=== PATIENT | male | born 2000 | race Caucasian/White ===

== ENCOUNTER 2022-08-16 23:59 | Emergency (ER) | payer OTHER, SELFPAY ==
--- NOTE | ~2022-08-16 | CT_ITS ---
CT Abdomen and Pelvis with contrast. History: Abdominal pain, vomiting. Spiral CT of the abdomen and pelvis was performed after the administration of intravenous contrast. 1 00 cc of Omnipaque 350 was administered intravenously without complication. Dose reduction technique was used on this scan by utilizing automated exposure control and iterative reconstruction technique. The dose-length product (DLP) was 443.03 mGy-cm. Findings: Scans through the lung bases demonstrate mild atelectatic change. The liver, spleen, pancreas, gallbladder, adrenals and kidneys are within normal limits. No evidence of aortic aneurysm. No lymphadenopathy is seen. There is no evidence of bowel obstruction. There is no evidence to suggest acute appendicitis or dive rticulitis. Images through the pelvis were performed. Urinary bladder unremarkable. Prostate gland and seminal ve sicles are unremarkable. No ascites is seen. Impression: No significant abnormalities seen. Reviewed, dictated and finalized at [facility]. [facility] [employer] Impression: No significant abnormalities seen.
[2022-08-17 00:04] VITALS: BP 115/58; PULSE 128; RESP 18; TEMP 36.6; O2SAT 98
[2022-08-17 00:21] LABS: Bacteria Urine Trace /hpf; Mucus Urine Heavy /lpf; RBC Urine 0-2 /hpf (0-2); WBC Urine 0-3 /hpf
[2022-08-17 00:22] LABS: Hematocrit 49.3 % (42.0-52.0); Hemoglobin 17.5 g/dL (14.0-18.0); Mean Corpuscular HGB Conc 35.5 g/dl (32-36); Mean Corpuscular Volume 84.6 fl (80-100); Mean Platelet Volume 9.8 fl (7.4-10.4); Platelet Count Result 279 k/mm3 (150-375); Red Blood Count 5.83 M/mm3 (4.6-6.20); Red Cell Distribution Width 13.2 % (11.5-14.5); White Blood Count 9.3 K/mm3 (4.5-10.0)
[2022-08-17 00:23] LABS: Add Urine Microscopic? YES; Appearance Urine Clear (Clear); Bilirubin Urine 1+ (Negative); Blood Urine Negative (Negative); Color Urine Yellow (Yellow); Glucose Urine UA Negative (Negative); Ketones Urine Trace mg/dL (Negative); Leukocyte Esterase Ur Negative LEU/UL (Negative); Nitrate Urine Negative (Negative); Protein Urine Trace mg/dL (Negative); Specific Grav Ur >= 1.030 (1.001-1.035); Urobilinogen Urine 0.2 mg/dL (<2.0); pH Urine 5.5 (5.0-9.0)
[2022-08-17 00:27] LABS: Alanine Aminotransferase 37 U/L (6-50); Albumin Level 5.4 g/dL (3.5-5.1); Alkaline Phosphatase 95 U/L (38-126); Anion Gap 11 mmol/L (8-16); Aspartate Amino Transferase 34 U/L (17-59); Bilirubin,Total 1.1 mg/dL (0.2-1.3); Blood Urea Nitrogen 17 mg/dL (9-20); Calcium 9.8 mg/dL (8.4-10.2); Carbon Dioxide 22 mmol/L (22-30); Chloride 103 mmol/L (98-107); Estimated CRCL calculation 107 ml/min; Estimated Glomerular Filt Rate > 60; Glucose 130 mg/dL (65-110); Lipase 25 U/L (23-300); Sodium 136 mmol/L (137-145)
[2022-08-17 00:36] LABS: Band Neutrophils Percent 8 % (0-6); Lymphocytes Absolute Manual 0.09 K/mm3 (1.1-4.5); Monocytes Absolute Manual 0.27 K/mm3 (0.1-0.90); Monocytes Percent Manual 3 % (3-9); Neutrophils Absolute Manual 8.92 K/mm3 (1.3-6.7); Neutrophils Percent Manual 88 % (46-73); Platelet Estimate Adequate (Adequate); Schistocytes None Seen (NORMAL); Total Cells Counted 100
--- NOTE | 2022-08-17 00:36 | ED.ABDPAIN ---
HPI - Abdominal Pain General Chief Complaint: Abdominal Pain Stated Complaint: vomiting Time Seen by Provider: 08/17/22 00:17 Source: patient Mode of arrival: ambulatory Limitations: no limitations History of Present Illness HPI narrative: This is a 21 year old male that presents to the ER for abdominal pain, nausea and vomiting. Ongoing over the last two hours. Does also report diarrhea. Denies fever, dysuria, hematuria or hematochezia. Related Data Allergies Allergy/AdvReac Type Severity Reaction Status Date / Time No Known Allergies Allergy Verified 08/17/22 00:03 Review of Systems Review of Systems: CONSTITUTIONAL: Denies fever GASTROINTESTINAL: Reports abdominal pain, nausea, vomiting, and diarrhea. GENITOURINARY: Denies dysuria or hematuria. All systems reviewed & are unremarkable except as noted in HPI and below PMFSH Past Medical History Medical History (Updated 08/18/22 @ 00:00 by Quang Laws) No active medical problems Social History Social History (Updated 08/17/22 @ 00:38 by Susan Ramirez PA-C) Smoking status: Never smoker Substance use: current Substance use type: marijuana Exam Narrative: GENERAL: Well-appearing, well-nourished, and in no acute distress. HEAD: Normocephalic, atraumatic. EYES: EOMI. CHEST: Clear to auscultation. No respiratory distress. No wheezes rales or rhonchi HEART: Regular rate and rhythm. No murmur heard. Normal peripheral pulses. ABDOMEN: Soft, nondistended, normal active bowel sounds. Mild tenderness to palpation throughout the abdomen, without guarding. No CVA tenderness EXTREMITIES: Normal range of motion. No edema. SKIN: Warm, dry, no rash. NEURO: No focal deficits. Alert and oriented x3. PSYCH: Normal mood and affect Course Vital Signs Vital signs: Vital Signs Temperature 97.9 F 08/17/22 00:04 Pulse Rate 128 H 08/17/22 00:04 Respiratory Rate 18 08/17/22 00:04 Blood Pressure 115/58 L 08/17/22 00:04 Pulse Oximetry 98 08/17/22 00:04 Oxygen Delivery Room Air 08/17/22 00:04 Temperature 98.1 F 08/17/22 03:26 Pulse Rate 75 08/17/22 03:26 Respiratory Rate 18 08/17/22 03:26 Blood Pressure 106/75 08/17/22 03:26 Pulse Oximetry 99 08/17/22 03:26 Oxygen Delivery Room Air 08/17/22 00:04 MDM - Abdominal Pain MDM Narrative Medical decision making narrative: Patient presents to the ER for abdominal pain, nausea and vomiting. He is afebrile and nontoxic appearing. Tachycardic upon arrival, this normalized with IV fluid administration. CBC without leukocytosis. Metabolic panel without concerning findings. Lipase is normal. UA without evidence of infection. CT scan of the abdomen/pelvis obtained. Patient reports improvement with IV fluids, Tylenol and Zofran. CT scan without significant abnormalities. Patient was updated on work-up. Resting comfortably. Instructed on continued care of likely viral infection. He is to follow-up with primary care provider. He was given warnings to return to the ER Lab Data Attestation: I reviewed the patient's lab results. 08/17/22 00:09 08/17/22 00:09 Labs: Lab Results 08/17/22 08/17/22 08/17/22 Range/Units 00:09 00:09 00:09 WBC 9.3 (4.5-10.0) K/mm3 RBC 5.83 (4.6-6.20) M/mm3 Hgb 17.5 (14.0-18.0) g/dL Hct 49.3 (42.0-52.0) % MCV 84.6 (80-100) fl MCH 30.0 (26-34) pg MCHC 35.5 (32-36) g/dl RDW 13.2 (11.5-14.5) % Plt Count 279 (150-375) k/mm3 MPV 9.8 (7.4-10.4) fl Immature Gran % (Auto) Not Reportable Neut % (Auto) Not Reportable Lymph % (Auto) Not Reportable [place] % (Auto) Not Reportable Eos % (Auto) Not Reportable Baso % (Auto) Not Reportable Lymph # (Auto) Not Reportable [place] # (Auto) Not Reportable Eos # (Auto) Not Reportable Baso # (Auto) Not Reportable Abs Immat Gran (auto) Not Reportable Absolute Neuts (auto) Not Reportable Absolu
[2022-08-17 00:37] LABS: Large Platelets Present
[2022-08-17 00:54] LABS: Influenza A QL RT-PCR Negative (Negative); Influenza B QL RT-PCR Negative (Negative); RSV RNA, RT-PCR Negative (Negative); SARS-CoV-2 RNA PCR Negative
[2022-08-17] MEDS: SODIUM CHLORIDE 0.9% IV 1,000 ML 999 ML IV CONT (01:05)
[2022-08-17] MEDS: FAMOTIDINE 20 MG/2 ML VIAL IV PUSH (01:07)
[2022-08-17] MEDS: ONDANSETRON INJ 4 MG/2 ML VIAL IV PUSH (01:07)
[2022-08-17 02:09] VITALS: BP 126/75; PULSE 81; RESP 18; TEMP 36.8; O2SAT 99
--- NOTE | 2022-08-17 02:10 | PC.NURSE ---
Patient states feeling much better
[2022-08-17 02:45] VITALS: BP 102/65; PULSE 71; RESP 18; TEMP 36.8; O2SAT 99
[2022-08-17 03:26] VITALS: BP 106/75; PULSE 75; RESP 18; TEMP 36.7; O2SAT 99
== END 2022-08-17 03:28 | disposition home or self-care (01) ==
PROVIDERS: Emergency Provider Emergency Medicine
DX: K52.9 Noninfective gastroenteritis and colitis, unspecified (principal); Z20.822 Contact with and (suspected) exposure to COVID-19
CPT/HCPCS: 36415; 74177; 80053; 81001; 83690; 85025; 87637; 96361; 96365; 96375; 99284; J0131; J2405; J7030; Q9967